=== PATIENT | male | born 1980 | race Caucasian/White ===

== ENCOUNTER 2022-06-25 11:07 | Emergency (ER) | payer OTHER ==
[2022-06-25 12:29] LABS: HEMOGLOBIN 15.9 gm/dl (14.0-17.5); RED BLOOD COUNT 5.27 M/UL (4.20-5.50)
[2022-06-25 12:52] LABS: BUN/CREATININE RATIO 11 (0-10)
== END 2022-06-25 13:34 | disposition short-term general hospital (02) ==
LOC: ER1 11:07
PROVIDERS: Physician Assistant
DX: H54.61 Unqualified visual loss, right eye, normal vision left eye (principal); F17.220 Nicotine dependence, chewing tobacco, uncomplicated; K21.9 Gastro-esophageal reflux disease without esophagitis
CPT/HCPCS: 70450; 80053; 82550; 82553; 84484; 85025; 85652; 99285